=== PATIENT | female | born 1945 | race Caucasian/White ===

== ENCOUNTER 2020-01-13 07:10 | Day surgery (SDC) | payer MEDICARE, OTHER ==
[2020-01-10 13:10] VITALS: BMI 28.8
[~2020-01-13 07:10] MED LIST: Prevnar 13-Val Conj/PF 0.5 ML SYRINGE IM ONE
[2020-01-13 08:26] VITALS: BP 128/56; TEMP 97.6
--- NOTE | 2020-01-13 08:29 | RAD ---
LUMBAR SPINE 4 VIEWS: HISTORY: Low back pain and sciatica. COMPARISON: Lumbar films from 10/23/2017. FINDINGS: Pedicle screws are again noted in place with pedicle screws and rods transfixing L2, L3, L4, and L5 l evels. Interbody implant at L4-5 is again noted. There is a grade 1-2 spondylolisthesis at L5-S1 wi th loss of disk space, similar to the prior exam. Prominent degenerative osteophytes with anterior b ridging osteophytes at T12-L1 and L1-2, stable in appearance. Loss of disk space at all levels of th e lumbar spine. No change in position of the hardware. No evidence of hardware loosening. No signi ficant change in the lumbar spine when compared to 10/23/2017. IMPRESSION: Degenerative and postoperative change of the lumbar spine again noted. POS: AGW
--- NOTE | 2020-01-13 09:17 | RAD ---
MYELOGRAM LUMBAR: DATE: 01/13/2020 HISTORY: 74-year-old female with low back pain and bilateral lumbar radiculopathy TECHNIQUE: Signed informed consent obtained. Patient placed prone on fluoroscopy table. Skin of lower back prepa red and draped in usual sterile fashion. 25-gauge needle used to apply buffered lidocaine superficially and deeply. Level selected:L3. Approach: Left paramedian through laminectomy defect. 22-gauge spinal needle advanced into spinal canal under brief, intermittent fluoroscopy. Upon return of clear CSF, 10 mL Isovue [id number] media was injected into the intrathecal space. Spinal needle was removed. Patient tolerated procedure well. No complications. Total fluoroscopy time:1 minutes. Dose area product:120.8 uGy*m^2. FINDINGS: Bilateral pedicle screws at L2, L3, L4, L5. Midline laminectomy defects through the head and lower lumbar spine. Spinal needle tip at L3 level. Intrathecal contrast material visualized within the thecal sac. IMPRESSION: Successful lumbar myelogram. See separate report of subsequent CT lumbar myelogram.
--- NOTE | 2020-01-13 09:36 | CT ---
CT lumbar spine with contrast: (CT lumbar myelogram) DATE: 01/13/2020 HISTORY: 74-year-old female with severe low back pain and bilateral lumbar radiculopathy. COMPARISON: None FINDINGS: There are 5 lumbar-type vertebrae. Vertebral body heights are maintained. Bilateral pedicle screws wi th vertical interlocking rods at L2, L3, L4, and L5. Conus medullaris terminates at L1. No evidence of loosening of hardware. No central spinal canal stenosis at any level. Thecal sac is generous in ca liber through the levels of midline decompressive laminectomies, from L2-3 through L4-5. Bilateral onlay bone graft fusion of posterior elements, with successful ankylosis of lateral masses, from L2-3 through L5-S1. Bulky bridging endplate osteophytes protruding into the prevertebral space at all visualized levels of lower thoracic spine from T11-12 through L1-2, consistent with DISH. Partial vis ualization of a 5.5 x 6 cm soft tissue density structure within the right side of the pelvic cavity. Right SI joint has vacuum joint phenomenon. T12-L1: No additional findings. L1-2: Severe degenerative disc disease: Moderate disc space narrowing, central and left paracentral d isc-osteophyte complex slightly indenting the ventral aspect of thecal sac, vacuum disc phenomenon, and tiny endplate irregularities. Mild bilateral neural foraminal stenosis. L2-3: Severe degenerative disc disease: Moderate to severe disc space narrowing, retrolisthesis of L2 on L3, and broad-based disc-osteophyte complex indenting the ventral surface of thecal sac. Osseous bridges across the disc space between the left posterior corner of the endplates. Mild to mod erate bilateral bony neural foraminal stenosis. L3-4: Moderate degenerative disc disease: Moderate disc space narrowing, slight retrolisthesis of L3 on L4, broad-based disc-osteophyte complex indenting the ventral aspect of thecal sac. Moderate bilateral bony neural foraminal stenosis. L4-5: Metallic markers for interbody cage. Multiple osseous bridges across the disc space between the endplates. Grade 1 anterolisthesis of L4 on L5. Moderate bilateral neural foraminal stenosis. L5-S1: Severe degenerative disc disease: Severe disc space narrowing. Multiple osseous bridges across the disc space between the endplates. Grade 1 anterolisthesis of L5 on S1. Moderate to severe right bony neural foraminal stenosis. Moderate bony left neural foraminal stenosis. IMPRESSION: 1.) Severe lumbar spondylosis consisting of multilevel severe degenerative disc disease. 2) status post posterior lumbar fusion with hardware, and successful ankylosis, plus decompressive la minectomies, at all levels from L2-3 through L4-5. 3) no significant central spinal canal stenosis at any level. 4) varying degrees of neural foraminal stenosis bilaterally. The worst level is right L5-S1. 5) large soft tissue density "mass" in the pelvic cavity. Recommend further evaluation with dedicated CT of the pelvis (with IV contrast unless contraindicated)
== END 2020-01-13 09:55 | disposition home or self-care (01) ==
LOC: RAD 07:10
PROVIDERS: ATTEND Neurological Surgery
PROC: B01B1ZZ Fluoroscopy of Spinal Cord using Low Osmolar Contrast (ICD-10-PCS; principal; 2020-01-13)
DX: M47.26 Other spondylosis with radiculopathy, lumbar region (principal); M51.16 Intervertebral disc disorders with radiculopathy, lumbar region; M51.17 Intervertebral disc disorders with radiculopathy, lumbosacral region; M48.061 Spinal stenosis, lumbar region without neurogenic claudication; R19.00 Intra-abdominal and pelvic swelling, mass and lump, unspecified site; G89.29 Other chronic pain; I10 Essential (primary) hypertension; I25.10 Atherosclerotic heart disease of native coronary artery without angina pectoris; F32.9 Major depressive disorder, single episode, unspecified; F41.9 Anxiety disorder, unspecified; E03.9 Hypothyroidism, unspecified; E78.5 Hyperlipidemia, unspecified; Z79.82 Long term (current) use of aspirin; Z79.899 Other long term (current) drug therapy; Z88.0 Allergy status to penicillin; Z98.1 Arthrodesis status; Z95.5 Presence of coronary angioplasty implant and graft
CPT/HCPCS: 62304; 72110; 72132